=== PATIENT | female | born 1965 | race Caucasian/White ===

== ENCOUNTER 2017-12-30 11:50 | Day surgery (SDC) | payer OTHER ==
[2017-12-30] MEDS ORDERED: PROPOFOL 40 ML (12:54)
[2017-12-30] MEDS ORDERED: LIDOCAINE 2% (SDV) 5 ML INJ (12:54)
[2017-12-30] MEDS ORDERED: PROPOFOL 20 ML ×2 (13:25)
[2017-12-30] MEDS ORDERED: EPHEDrine SULFATE 50 MG/5 ML SYG ×2 (13:42→13:53)
== END 2017-12-30 16:23 | disposition home or self-care (01) ==
LOC: GIL 11:50
DX: Z12.11 Encounter for screening for malignant neoplasm of colon (principal); D12.0 Benign neoplasm of cecum
CPT/HCPCS: 45380; 88305

== ENCOUNTER 2018-03-24 12:44 | Day surgery (SDC) | payer OTHER ==
[~2018-03-24 12:44] MED LIST: CEFAZOLIN 2 GM/50 ML (PMX) 50 ML (FOR WT < 120 KG) IVPB; SOD CHLORIDE 0.9% 1,000 ML IV; metroNIDAZOLE 500 MG/NS (PMX) 100 ML IVPB
[2018-03-24] MEDS: LACTATED RINGER'S 1,000 ML IV (13:25)
[2018-03-24] MEDS ORDERED: MIDAZOLAM 1 MG/ML 2 ML INJ (14:34)
[2018-03-24] MEDS ORDERED: FENTAnyl 50 MCG/ML VIAL (14:34)
[2018-03-24] MEDS ORDERED: PROPOFOL 20 ML (14:34)
[2018-03-24] MEDS ORDERED: LIDOCAINE 2% (SDV) 5 ML INJ (14:34)
[2018-03-24] MEDS ORDERED: ROCURONIUM 50 MG INJ (14:34)
[2018-03-24] MEDS ORDERED: SUCCINYLCHOLINE CHLORIDE 100 MG/5 ML SYG IV (14:34)
[2018-03-24] MEDS ORDERED: ONDANSETRON 4 MG INJ (14:47)
[2018-03-24] MEDS ORDERED: DEXAMETHASONE 4 MG/ML 1 ML INJ (14:47)
[2018-03-24] MEDS ORDERED: FAMOTIDINE 20 MG INJ (14:47)
[2018-03-24] MEDS ORDERED: CEFAZOLIN 1 GM INJ (14:47)
[2018-03-24] MEDS: BUPIVACAINE 0.5% (SDV) 30 ML INJ (14:57)
[2018-03-24] MEDS: LIDOCAINE 1%/EPI 30 ML INJ (14:58)
[2018-03-24] MEDS ORDERED: SUGAMMADEX SODIUM 200 MG/2 ML VIAL IV ×2 (15:02→15:04)
[2018-03-24] MEDS ORDERED: NEOMYC/POLYMYX/BACIT 30 GM OINT (15:04)
[2018-03-24] MEDS ORDERED: KETOROLAC 30 MG INJ (15:09)
[2018-03-24] MEDS ORDERED: EPHEDrine SULFATE 50 MG/5 ML SYG (15:10)
[2018-03-24] MEDS ORDERED: HYDROmorphONE 1 MG/5 ML IV SYRINGE IV ×3 (15:30)
[2018-03-24] MEDS ORDERED: DIPHENHYDRAMINE 50 MG INJ IV (15:30)
[2018-03-24] MEDS ORDERED: ONDANSETRON 4 MG INJ IV (15:30)
[2018-03-24] MEDS ORDERED: PROCHLORPERAZINE 10 MG INJ IV (15:30)
[2018-03-24] MEDS ORDERED: OXYCODONE/ACETAMINOPHEN (5/325) TAB PO (15:30)
[2018-03-24] MEDS ORDERED: MEPERIDINE 25 MG INJ IV (15:30)
[2018-03-24] MEDS ORDERED: FENTAnyl 50 MCG/ML VIAL IV ×3 (15:30)
== END 2018-03-24 17:06 | disposition home or self-care (01) ==
LOC: SDS 12:44
DX: K60.3 Anal fistula (principal)
CPT/HCPCS: 46270; 88304

== ENCOUNTER 2018-11-19 05:43 | Day surgery (SDC) | payer OTHER ==
[2018-11-19] MEDS ORDERED: FENTAnyl 50 MCG/ML VIAL (07:54)
[2018-11-19] MEDS ORDERED: MIDAZOLAM 1 MG/ML 2 ML INJ (07:55)
== END 2018-11-19 11:20 | disposition home or self-care (01) ==
LOC: GIL 05:43
DX: K29.60 Other gastritis without bleeding (principal); K44.9 Diaphragmatic hernia without obstruction or gangrene; K21.9 Gastro-esophageal reflux disease without esophagitis
CPT/HCPCS: 43239; 84703; 88305; 88312